=== PATIENT | female | born 1980 | race Caucasian/White ===

== ENCOUNTER 2023-12-27 | Emergency (ER) | payer SELFPAY ==
[~2023-12-27] VITALS: Ht 162.6 cm; Wt 79.0 kg
[2023-12-27 00:19] VITALS: BP 98/71; PULSE 71; RESP 16; TEMP 97.1; O2SAT 99
[2023-12-27 01:32] LABS: APPEARANCE,URINE HAZY (CLEAR); BILIRUBIN,URINE NEGATIVE (NEGATIVE); BLOOD, URINE TRACE-I (NEGATIVE); COLOR,URINE YELLOW (YELLOW); LEUKOCYTE ESTERASE ,URINE NEGATIVE (NEGATIVE); NITRITE, URINE NEGATIVE (NEGATIVE); PROTEIN,URINE NEGATIVE (NEGATIVE); UGLUCOSE NEGATIVE (NEGATIVE); UROBILINOGEN,URINE 0.2 EU/dL (0.2 - 1)
[2023-12-27 01:52] LABS: BACTERIA,URINE 2+ /HPF (None Seen); RBC,URINE 0-5 /HPF (0-5); SQUAMOUS EPITHELIAL CELL,UR 20-50 /LPF (0-3 (FEW)); WBC,URINE 0-5 /HPF (0-5)
[2023-12-27] MEDS ORDERED: cefTRIAXone 1,000 MG VIAL ONE (02:22)
[2023-12-27] MEDS ORDERED: LIDOCAINE MPF 1% 5 ML ONE (02:23)
[2023-12-27] MEDS: KETOROLAC 60 MG/2 ML VIAL IM ONE (02:30)
[2023-12-27] MEDS: cefTRIAXone 1,000 MG in LIDOCAINE MPF 1% 2.1 ML IM ONE (02:30)
[2023-12-27] MEDS ORDERED: CIPR500T4 PO (03:30)
== END 2023-12-27 03:37 | disposition home or self-care (01) ==
LOC: MED
DX: N39.0 Urinary tract infection, site not specified (principal); Z79.899 Other long term (current) drug therapy
CPT/HCPCS: 81001; 81025; 87086; 96372; 99284; J0696; J1885; J2001